=== PATIENT | female | born 1935 | race Caucasian/White ===

== ENCOUNTER 2023-02-02 19:18 | Emergency (ER) | payer MEDICARE, SELFPAY ==
[2023-02-02 19:29] VITALS: BP 142/102; PULSE 75; RESP 24; O2SAT 82
[2023-02-02 19:30] VITALS: O2SAT 82
--- NOTE | 2023-02-02 19:32 | ED.GENADULT ---
HPI - General Adult General Stated complaint: Blood sugar low Source: patient, family and RN notes reviewed History of Present Illness HPI narrative: 87-year-old female presents to urgent care with son at bedside. Son states patient has been lethargic all day and not wanting to eat. Son states patient did fall in the middle of the night last night, unsure if there was injury or head injury; denies any LOC. Patient denies any pain and just states ?it feels like I'm going to pass out. ? Denies any recent illness, fevers, chills, or vomiting. Denies any chest pain, SOB, or cough. Pt's fingertips noted to be cyanotic and cold. Some parts of this dictation were generated by voice recognition software and may contain typographical and/or grammatical inaccuracies. Review of Systems Review of Systems: Pertinent positives and pertinent negatives per HPI. [facility] Comments At the time of my signature, I reviewed and agree with the nursing past medical, surgical, social, and family history. There is no relevant family history pertinent to the patient complaint. Exam Narrative: GENERAL: Lethargic, cachexic. HEAD: normocephalic, atraumatic. EYES: Rght pupil dilated to 9mm. Left eye noted cataract. EARS: External ears normal, auditory canals clear and without drainage, TMs normal without perforation. Hearing grossly intact. NOSE: External nose normal with no obvious nasal discharge, nares without redness, no rhinorrhea. NECK: Neck supple, non-tender without lymphadenopathy, masses or thyromegaly. CARDIOVASCULAR: Regular rate and rhythm without murmurs, gallops, or rubs. RESPIRATORY: Diminished bilaterally. GASTROINTESTINAL: Abdomen soft, non-tender, nondistended. Bowel sounds are active. No hepato-splenomegaly, or palpable masses. No guarding. SKIN: Cool, poor turgor. NEURO: awake, alert, and oriented to person, place and time. There were no obvious focal neurologic abnormalities. EXTREMITIES: Cyanotic fingertips. Cap refill over 5 seconds. Course Course Level of Care: Express Care Visit Vital Signs Vital signs: Vital Signs Pulse Rate 75 02/02/23 19:29 Respiratory Rate 24 H 02/02/23 19:29 Blood Pressure 142/102 H 02/02/23 19:29 Pulse Oximetry 82 L 02/02/23 19:29 Oxygen Delivery Room Air 02/02/23 19:29 Pulse Rate 74 02/02/23 19:38 Respiratory Rate 24 H 02/02/23 19:29 Blood Pressure 129/56 L 02/02/23 19:38 Pulse Oximetry 94 02/02/23 19:38 Oxygen Delivery Nasal Cannula 02/02/23 19:38 Oxygen Flow Rate 4 02/02/23 19:38 reviewed Medical Decision Making MDM Narrative Medical decision making narrative: Report given to Zakiya NELSON at [facility] ED, who accepted pt for Dr. Valladares. Pt and son agreed to transfer. EMS called. Vitals stable at time of transfer. Differential Diagnosis Differential Diagnosis: cardiac event, viral illness, PNA Vital Signs Vital Signs: Vital Signs Pulse Rate 75 02/02/23 19:29 Respiratory Rate 24 H 02/02/23 19:29 Blood Pressure 142/102 H 02/02/23 19:29 Pulse Oximetry 82 L 02/02/23 19:29 Oxygen Delivery Room Air 02/02/23 19:29 Pulse Rate 74 02/02/23 19:38 Respiratory Rate 24 H 02/02/23 19:29 Blood Pressure 129/56 L 02/02/23 19:38 Pulse Oximetry 94 02/02/23 19:38 Oxygen Delivery Nasal Cannula 02/02/23 19:38 Oxygen Flow Rate 4 02/02/23 19:38 ECG Data EKG #1: ECG completion date: 02/02/23 ECG completion time: 19:28 Interpretation: Rate of 76 bpm. EKG Interpretation: sinus rhythm Critical Care Time Critical Care Time Critical Care Time: No Discharge Plan Discharge Clinical Impression: Lethargic Patient Disposition: Acute Care Hospital Condition: Serious Follow-up/Referrals: Kalia,MD Amilcar [Primary Care Provider] -
[2023-02-02 19:35] VITALS: O2SAT 90
[2023-02-02 19:38] VITALS: BP 129/56; PULSE 74; O2SAT 94
--- NOTE | 2023-02-02 19:58 | ECG_ITS ---
Measurements Intervals [place] Rate: 76 P: 82 NC: 123 QRS: 78 QRSD: 78 T: 66 QT: 363 QTc: 409 Interpretive Statements SINUS RHYTHM POSSIBLE RIGHT ATRIAL ENLARGEMENT POSSIBLE LEFT ATRIAL ENLARGEMENT NONSPECIFIC ST & T-WAVE ABNORMALITY- DIFFUSE LEADS BASELINE ARTIFACT- I, II, III, AVR, AVL, AVF BORDERLINE ECG NO PREVIOUS ECG AVAILABLE FOR COMPARISON Electronically Signed On 02-03-2023 8:05:01 CDT by Jericho Crowell D.O.
[2023-02-08 10:42] LABS: Glucose Point of Care 139 mg/dl (65-105)
== END 2023-02-02 19:45 | disposition short-term general hospital (02) ==
PROVIDERS: Emergency Provider Nurse Practitioner Family; PCP Internal Medicine Infectious Disease
DX: R53.83 Other fatigue (principal)
CPT/HCPCS: 82948; 93005; 99215; G0463